=== PATIENT | female | born 1970 | race Caucasian/White ===

== ENCOUNTER 2018-06-30 10:46 | Emergency (ER) | payer OTHER ==
[~2018-06-30] VITALS: Ht 154.9 cm; Wt 68.7 kg
[2018-06-30 11:23] LABS: HEMOGLOBIN 9.8 gm/dL (12.0-15.0)
[2018-06-30 11:25] LABS: HEMATOCRIT 32.9 % (37.0-47.0); MCH 20.2 pg (26.0-34.0); MCHC 29.9 g/dL (28.0-37.0); MCV 67.4 fL (80.0-100.0); MPV 7.8 fl. (7.2-11.1); NUCLEATED RBCS 0 /100WBC; PLATELET COUNT* 355 thou/uL (150-400); RBC 4.88 mil/uL (4.20-5.00); RDW-CV 18.8 % (10.5-14.5); WBC 10.2 thou/uL (4.0-11.0)
[2018-06-30 11:29] LABS: CALCIUM 8.3 mg/dL (8.5-10.1); CREATININE 0.9 mg/dL (0.6-1.3)
[2018-06-30 11:34] LABS: ALBUMIN 2.8 g/dL (3.4-5.0); TOTAL BILIRUBIN 0.5 mg/dL (<0.1-1.0); TOTAL PROTEIN 6.7 g/dL (6.4-8.2)
[2018-06-30 11:49] LABS: ABSOLUTE EOSINOPHILS 0.1 thou/uL (0.0-0.7); ABSOLUTE LYMPHOCYTES 4.6 thou/uL (0.8-5.3); ABSOLUTE MONOCYTES 1.1 thou/uL (0.0-1.2); ABSOLUTE NEUTROPHILS 4.4 thou/uL (1.6-8.1); ATYPICAL LYMPHS 11 %
[2018-06-30 11:50] LABS: HYPOCHROMASIA 2+; MICROCYTES 2+; PLATELET ESTIMATE ADEQUATE; POLYCHROMASIA 1+
[2018-06-30 13:13] LABS: URINE BILIRUBIN NEGATIVE (Negative); URINE BLOOD NEGATIVE (Negative); URINE CLARITY CLEAR; URINE COLOR YELLOW; URINE GLUCOSE-RANDOM NEGATIVE (Negative); URINE KETONES NEGATIVE (Negative); URINE LEUKOCYTES-REFLEX NEGATIVE (Negative); URINE NITRITE-REFLEX NEGATIVE (Negative); URINE PROTEIN NEGATIVE (Negative); URINE SPECIFIC GRAVITY <= 1.005 (1.005-1.030); URINE UROBILINOGEN 0.2 E.U./dl (0.2-1.0)
[2018-06-30 14:05] VITALS: BP 127/92
== END 2018-06-30 14:05 | disposition home or self-care (01) ==
LOC: M.ERS 10:46
PROVIDERS: Nurse Practitioner Family
DX: B34.9 Viral infection, unspecified (principal); I10 Essential (primary) hypertension

== ENCOUNTER 2019-05-02 17:33 | Emergency (ER) | payer OTHER ==
[~2019-05-02] VITALS: Ht 154.9 cm; Wt 66.7 kg
[2019-05-02 18:21] LABS: URINE BILIRUBIN NEGATIVE (Negative); URINE BLOOD 1+ (Negative); URINE CLARITY CLEAR; URINE COLOR YELLOW; URINE GLUCOSE-RANDOM NEGATIVE (Negative); URINE KETONES NEGATIVE (Negative); URINE LEUKOCYTES-REFLEX NEGATIVE (Negative); URINE NITRITE-REFLEX NEGATIVE (Negative); URINE PROTEIN NEGATIVE (Negative); URINE SPECIFIC GRAVITY >= 1.030 (1.005-1.030); URINE UROBILINOGEN 0.2 E.U./dl (0.2-1.0)
[2019-05-02 18:22] LABS: ABSOLUTE BASOPHILS 0.1 thou/uL (0.0-0.2); ABSOLUTE EOSINOPHILS 0.5 thou/uL (0.0-0.7); ABSOLUTE LYMPHOCYTES 2.6 thou/uL (0.8-5.3); ABSOLUTE MONOCYTES 0.5 thou/uL (0.0-1.2); ABSOLUTE NEUTROPHILS 4.4 thou/uL (1.6-8.1); BASOPHILS 1.2 %; EOSINOPHILS 6.3 %; HEMATOCRIT 36.7 % (37.0-47.0); HEMOGLOBIN 11.4 gm/dL (12.0-15.0); LYMPHOCYTES 32.4 %; MCH 23.4 pg (26.0-34.0); MCHC 31.2 g/dL (28.0-37.0); MONOCYTES 6.1 %; MPV 9.4 fl. (7.2-11.1); NUCLEATED RBCS 0 /100WBC; PLATELET COUNT* 310 thou/uL (150-400); RBC 4.89 mil/uL (4.20-5.00); RDW-CV 17.4 % (10.5-14.5); WBC 8.1 thou/uL (4.0-11.0)
[2019-05-02 18:32] LABS: CASTS None Seen /LPF (None Seen); CRYSTALS None Seen /LPF (None Seen); SQUAMOUS 0-3 Few /LPF (0-3); URINE RBC 0-2 Rare /HPF (0-2); URINE WBC-REFLEX 6-15 Few /HPF (0-5)
[2019-05-02 18:33] LABS: CALCIUM 8.3 mg/dL (8.5-10.1); CREATININE 0.7 mg/dL (0.6-1.3)
[2019-05-02 18:37] LABS: ALBUMIN 3.3 g/dL (3.4-5.0); TOTAL BILIRUBIN 0.6 mg/dL (<0.1-1.0)
[2019-05-02] MEDS ORDERED: NORCO 5-325 TA1 EAC1 PO (20:13)
[2019-05-02] MEDS ORDERED: TORADOL 10 MG T10 MG PO (20:13)
[2019-05-02] MEDS ORDERED: ZOFRAN ODT4 MG PO (20:13)
[2019-05-02 20:25] VITALS: BP 161/98
== END 2019-05-02 20:29 | disposition home or self-care (01) ==
LOC: M.ERS 17:33
PROVIDERS: Emergency Medicine Emergency Medical Services
DX: N23 Unspecified renal colic (principal); I10 Essential (primary) hypertension; Z88.2 Allergy status to sulfonamides; Z87.442 Personal history of urinary calculi

== ENCOUNTER 2019-12-25 14:50 | Emergency (ER) | payer OTHER ==
[~2019-12-25] VITALS: Ht 154.9 cm; Wt 63.5 kg
[~2019-12-25 14:50] MED LIST: NORCO 5-325 TA1 EAC1 PO; TORADOL 10 MG T10 MG PO; ZOFRAN ODT4 MG PO
[2019-12-25] MEDS ORDERED: SERTRALINE HCL100 MG PO (14:57)
[2019-12-25] MEDS ORDERED: ATENOLOL 25 MG25 M1 PO (14:58)
[2019-12-25 15:09] LABS: ABSOLUTE BASOPHILS 0.1 thou/uL (0.0-0.2); ABSOLUTE EOSINOPHILS 0.2 thou/uL (0.0-0.7); ABSOLUTE LYMPHOCYTES 2.5 thou/uL (0.8-5.3); ABSOLUTE MONOCYTES 0.6 thou/uL (0.0-1.2); ABSOLUTE NEUTROPHILS 5.3 thou/uL (1.6-8.1); EOSINOPHILS 2.2 %; HEMATOCRIT 35.9 % (37.0-47.0); LYMPHOCYTES 29.4 %; MCH 21.9 pg (26.0-34.0); MCHC 30.7 g/dL (28.0-37.0); MCV 71.3 fL (80.0-100.0); MONOCYTES 6.6 %; MPV 9.1 fl. (7.2-11.1); NUCLEATED RBCS 0 /100WBC; PLATELET COUNT* 314 thou/uL (150-400); POLYS 60.8 %; RBC 5.03 mil/uL (4.20-5.00); RDW-CV 18.8 % (10.5-14.5); WBC 8.7 thou/uL (4.0-11.0)
[2019-12-25 15:20] LABS: ALBUMIN 3.7 g/dL (3.4-5.0); MAGNESIUM 2.1 mg/dL (1.8-2.4); TOTAL BILIRUBIN 1.1 mg/dL (<0.1-1.0)
[2019-12-25 15:40] LABS: PLATELET ESTIMATE ADEQUATE
[2019-12-25 15:41] LABS: ANISOCYTOSIS 2+; HYPOCHROMASIA 2+; MICROCYTES 1+; POIKILOCYTOSIS Occasional; POLYCHROMASIA Occasional
[2019-12-25] MEDS ORDERED: NORCO 5-325 TA1 EAC1 PO (18:27)
[2019-12-25 18:39] VITALS: BP 111/69
--- NOTE | 2019-12-26 13:23 | EKG ---
[place] [address] ELECTROCARDIOGRAM REPORT Name: TRINITY POLANCO Room: [facility]#: [id number] Admission: 12/25/19 Attend Phys: Discharge: 12/25/19 Date of : 72 Date of Service: 12/25/19 1452 Report #: [id number] THIS REPORT FOR: //name// [facility] ED Test Date: 2019-12-25 Test Time: 14:52:50 Pat Name: TRINITY POLANCO Department: Room: Gender: F Occupational Ther: [employer] : 1970 Requested By: Jose You Order Number: [id number] MD: Raji Philip Measurements Intervals [place] Rate: 91 P: 41 MD: 116 QRS: -1 QRSD: 86 T: 14 QT: 328 QTc: 404 Interpretive Statements Sinus rhythm Borderline short MD interval Probable left atrial enlargement Borderline T abnormalities, inferior leads Baseline wander in lead(s) II,III,aVR,aVL,aVF,V1,V2,V3,V4,V5,V6 No previous ECG available for comparison Electronically Signed On 12-26-2019 13:22:16 CDT by Raji Philip [email or web address] <ELECTRONICALLY SIGNED> By: Raji Philip MD, FAC 12/26/19 1322 1452 1452 Raji Philip MD, FAC /EPI
== END 2019-12-25 18:41 | disposition home or self-care (01) ==
LOC: M.ERS 14:50
PROVIDERS: Emergency Medicine Emergency Medical Services
DX: R07.89 Other chest pain (principal); I10 Essential (primary) hypertension; Z87.442 Personal history of urinary calculi; Z88.2 Allergy status to sulfonamides

== ENCOUNTER 2020-05-17 16:45 | Emergency (ER) | payer OTHER ==
[~2020-05-17] VITALS: Ht 154.9 cm; Wt 63.5 kg
[~2020-05-17 16:45] MED LIST changes: +ATENOLOL 25 MG25 M1 PO; +SERTRALINE HCL100 MG PO
[2020-05-17] MEDS ORDERED: ZOLOFT50 M1 PO (16:51)
[2020-05-17 17:05] LABS: ABSOLUTE BASOPHILS 0.1 thou/uL (0.0-0.2); ABSOLUTE EOSINOPHILS 0.4 thou/uL (0.0-0.7); ABSOLUTE LYMPHOCYTES 1.9 thou/uL (0.8-5.3); ABSOLUTE MONOCYTES 0.5 thou/uL (0.0-1.2); ABSOLUTE NEUTROPHILS 4.4 thou/uL (1.6-8.1); BASOPHILS 1.3 %; EOSINOPHILS 4.8 %; HEMATOCRIT 26.9 % (37.0-47.0); HEMOGLOBIN 8.4 gm/dL (12.0-15.0); LYMPHOCYTES 26.1 %; MCH 21.9 pg (26.0-34.0); MCHC 31.3 g/dL (28.0-37.0); MONOCYTES 7.2 %; MPV 8.3 fl. (7.2-11.1); NUCLEATED RBCS 0 /100WBC; PLATELET COUNT* 365 thou/uL (150-400); POLYS 60.6 %; RBC 3.85 mil/uL (4.20-5.00); RDW-CV 22.3 % (10.5-14.5); WBC 7.3 thou/uL (4.0-11.0)
[2020-05-17 17:14] LABS: CALCIUM 7.2 mg/dL (8.5-10.1); CREATININE 0.8 mg/dL (0.6-1.3); POTASSIUM 3.6 mmol/L (3.5-5.1)
[2020-05-17 17:20] LABS: ALBUMIN 2.9 g/dL (3.4-5.0); TOTAL BILIRUBIN 0.5 mg/dL (<0.1-1.0); TOTAL PROTEIN 6.7 g/dL (6.4-8.2)
[2020-05-17 18:01] LABS: ANISOCYTOSIS 2+; MICROCYTES 2+; PLATELET ESTIMATE ADEQUATE
[2020-05-17 18:02] LABS: HYPOCHROMASIA Occasional
[2020-05-17] MEDS ORDERED: NORCO 5-325 TA1 EAC2 PO (18:18)
[2020-05-17] MEDS ORDERED: TAMSULOSIN HCL0.4 MG PO (18:18)
[2020-05-17 18:21] LABS: URINE BILIRUBIN NEGATIVE (Negative); URINE BLOOD 3+ (Negative); URINE CLARITY CLOUDY; URINE COLOR RED; URINE GLUCOSE-RANDOM NEGATIVE (Negative); URINE KETONES NEGATIVE (Negative); URINE LEUKOCYTES-REFLEX NEGATIVE (Negative); URINE NITRITE-REFLEX NEGATIVE (Negative); URINE PROTEIN 3+ (Negative); URINE SPECIFIC GRAVITY >= 1.030 (1.005-1.030); URINE UROBILINOGEN 0.2 E.U./dl (0.2-1.0)
[2020-05-17 18:27] LABS: SQUAMOUS 4-10 Moderate /LPF (0-3)
[2020-05-17 18:28] LABS: MUCUS 4-6 Moderate strn/LPF (None Seen)
[2020-05-17 18:29] VITALS: BP 139/80
[2020-05-17 18:31] LABS: CASTS None Seen /LPF (None Seen); URINE RBC >20 Many /HPF (0-2); URINE WBC-REFLEX 6-15 Few /HPF (0-5)
[2020-05-17 18:32] LABS: CALCIUM OXALATE 0-3 Few /LPF (None Seen)
== END 2020-05-17 18:29 | disposition home or self-care (01) ==
LOC: M.ERS 16:45
PROVIDERS: Family Medicine
DX: N20.0 Calculus of kidney (principal); I10 Essential (primary) hypertension; Z88.2 Allergy status to sulfonamides

== ENCOUNTER 2020-05-22 17:31 | Emergency (ER) | payer OTHER ==
[~2020-05-22] VITALS: Ht 154.9 cm; Wt 63.5 kg
[~2020-05-22 17:31] MED LIST changes: +NORCO 5-325 TA1 EAC2 PO; +TAMSULOSIN HCL0.4 MG PO; +ZOLOFT50 M1 PO
[2020-05-22 17:52] LABS: URINE BILIRUBIN NEGATIVE (Negative); URINE BLOOD 3+ (Negative); URINE CLARITY CLEAR; URINE COLOR YELLOW; URINE GLUCOSE-RANDOM NEGATIVE (Negative); URINE KETONES NEGATIVE (Negative); URINE LEUKOCYTES-REFLEX TRACE (Negative); URINE NITRITE-REFLEX NEGATIVE (Negative); URINE PROTEIN NEGATIVE (Negative); URINE UROBILINOGEN 0.2 E.U./dl (0.2-1.0)
[2020-05-22 17:57] LABS: ABSOLUTE BASOPHILS 0.1 thou/uL (0.0-0.2); ABSOLUTE EOSINOPHILS 0.4 thou/uL (0.0-0.7); ABSOLUTE LYMPHOCYTES 2.4 thou/uL (0.8-5.3); ABSOLUTE MONOCYTES 0.6 thou/uL (0.0-1.2); ABSOLUTE NEUTROPHILS 6.4 thou/uL (1.6-8.1); BASOPHILS 1.2 %; EOSINOPHILS 4.3 %; HEMATOCRIT 30.6 % (37.0-47.0); HEMOGLOBIN 9.6 gm/dL (12.0-15.0); LYMPHOCYTES 24.4 %; MCH 21.9 pg (26.0-34.0); MCHC 31.4 g/dL (28.0-37.0); MCV 69.8 fL (80.0-100.0); MONOCYTES 5.9 %; MPV 8.5 fl. (7.2-11.1); NUCLEATED RBCS 0 /100WBC; PLATELET COUNT* 442 thou/uL (150-400); POLYS 64.2 %; RBC 4.38 mil/uL (4.20-5.00); RDW-CV 20.9 % (10.5-14.5)
[2020-05-22 18:01] LABS: SQUAMOUS >10 Many /LPF (0-3)
[2020-05-22 18:02] LABS: BACTERIA-REFLEX None Seen /HPF (None Seen); CASTS None Seen /LPF (None Seen); CRYSTALS None Seen /LPF (None Seen); MUCUS 0-3 Light strn/LPF (None Seen); URINE RBC 0-2 Rare /HPF (0-2); URINE WBC-REFLEX None Seen /HPF (0-5)
[2020-05-22 18:05] LABS: CALCIUM 8.7 mg/dL (8.5-10.1); CREATININE 0.9 mg/dL (0.6-1.3); POTASSIUM 3.1 mmol/L (3.5-5.1)
[2020-05-22 18:10] LABS: ALBUMIN 3.4 g/dL (3.4-5.0); TOTAL BILIRUBIN 0.5 mg/dL (<0.1-1.0); TOTAL PROTEIN 7.4 g/dL (6.4-8.2)
[2020-05-22 18:12] LABS: PLATELET ESTIMATE INCREASED
[2020-05-22 18:13] LABS: ANISOCYTOSIS 2+; LARGE PLATELETS FEW; MICROCYTES 2+
[2020-05-22] MEDS ORDERED: CITRATE OF MAG296 M1 PO (19:02)
[2020-05-22] MEDS ORDERED: NORCO 5-325 TA1 EAC2 PO (19:02)
[2020-05-22 19:26] VITALS: BP 165/95
== END 2020-05-22 19:27 | disposition home or self-care (01) ==
LOC: M.ERS 17:31
PROVIDERS: Physician Assistant
DX: K80.20 Calculus of gallbladder without cholecystitis without obstruction (principal); K59.00 Constipation, unspecified; I10 Essential (primary) hypertension; Z87.442 Personal history of urinary calculi; Z88.2 Allergy status to sulfonamides

== ENCOUNTER → 2020-06-02 | Outpatient (CLI) | payer OTHER ==
[~2020-06-02] MED LIST changes: +CITRATE OF MAG296 M1 PO
== END ==
LOC: M.ULTRA 10:23
PROVIDERS: ATTEND Family Medicine
DX: K80.20 Calculus of gallbladder without cholecystitis without obstruction (principal); R10.84 Generalized abdominal pain